=== PATIENT | female | born 1970 | race Caucasian/White ===

== ENCOUNTER → 2018-09-24 | Outpatient (CLI) | payer BC ==
[~2018-09-24] MED LIST: ACETAMINOPHEN-1 EACH PO; DOCU100 PO; ESTR2 PO; HEARTBURN TREAT15 MG PO; IBUP800 PO; IRBE150; LEVSOD100; LORA10 PO; OXYACE5T PO; PROACE100; PROM25 PO; RANI150; SIME80CH PO; Tylenol325 MG PO; ZESTORETIC 20-121 EA PO; ZESTORETIC 20-251 E1
== END | disposition home or self-care (01) ==
LOC: PLD 08:34 → LAB SHORT 08:34
DX: D23.62 Other benign neoplasm of skin of left upper limb, including shoulder (principal)
CPT/HCPCS: 88305

== ENCOUNTER 2021-03-25 09:19 | Emergency (ER) | payer BC ==
[~2021-03-25] VITALS: Ht 167.6 cm; Wt 138.3 kg
[2021-03-25] MEDS ORDERED: SYNTHROID88 MCG PO (09:33)
[2021-03-25] MEDS ORDERED: HYDMOR2 PO (10:55)
[2021-03-29] MEDS ORDERED: OMEP20ER PO (11:50)
[2021-03-29] MEDS ORDERED: TRAM50 PO (12:07)
== END 2021-03-25 12:00 | disposition home or self-care (01) ==
LOC: ER 09:19
DX: S82.845A Nondisplaced bimalleolar fracture of left lower leg, initial encounter for closed fracture (principal); I10 Essential (primary) hypertension; Z88.2 Allergy status to sulfonamides; Z91.048 Other nonmedicinal substance allergy status; Z88.0 Allergy status to penicillin; Z79.899 Other long term (current) drug therapy; W19.XXXA Unspecified fall, initial encounter
CPT/HCPCS: 29515; 73610; 96372-59; 99283-25; A9270; J1885

== ENCOUNTER 2021-03-30 12:08 | Day surgery (SDC) | payer BC ==
[~2021-03-30] VITALS: Ht 167.6 cm; Wt 136.0 kg
[~2021-03-30 12:08] MED LIST changes: +HYDMOR2 PO; +OMEP20ER PO; +SYNTHROID88 MCG PO; +TRAM50 PO
--- NOTE | 2021-03-30 13:47 | NUR ---
PT IN TO DAYSURGERY IN W/C. PT A/O. History, Chart, Medications and Allergies reviewed before start of procedure. Lungs clear T/O to Auscultation. Patient confirms NPO status and agrees with scheduled surgery. Pre-Op teaching done. Pt verbalizes understanding.
--- NOTE | 2021-03-30 15:51 | NUR ---
JAMILAH BROWN FEELS ME TOUCH THEM PINK IN COLOR CAP REFILL WNL
--- NOTE | 2021-03-30 16:25 | NUR ---
recieved patinte and report vss reminded to take deep breaths now and then when sats
--- NOTE | 2021-03-30 17:12 | NUR ---
Discharge instructions reviewed with patient. Patient verbalizes understanding. Copy given to patient to take home. Patient States Post-Procedure ride home has been arranged. Discharged via wheelchair to private car for ride home.
--- NOTE | 2021-03-30 17:12 | NUR ---
GETTING DRESSED AND UP TO BATHROOM TO GO HOME.
--- NOTE | 2021-04-02 07:44 | NUR ---
04/02/21 0744 Lacy Nichole VERIFICATIONS: EDIT CHART.
== END 2021-03-30 23:28 | disposition home or self-care (01) ==
LOC: ORSCMMR 12:08 → ORD 13:45 → ORSCMMR 13:45
PROVIDERS: Podiatrist Foot & Ankle Surgery
PROC: 0QSK04Z Reposition Left Fibula with Internal Fixation Device, Open Approach (ICD-10-PCS; principal; 2021-03-30 14:00)
DX: S82.62XA Displaced fracture of lateral malleolus of left fibula, initial encounter for closed fracture (principal); I10 Essential (primary) hypertension; K21.9 Gastro-esophageal reflux disease without esophagitis; E66.01 Morbid (severe) obesity due to excess calories; Z68.43 Body mass index [BMI] 50.0-59.9, adult; Z79.899 Other long term (current) drug therapy
CPT/HCPCS: A9270; C1713; J0171; J1100; J2250; J2405; J2704; J3010; J3370; J7050; J7120